=== PATIENT | female | born 1980 | race Caucasian/White ===

== ENCOUNTER 2017-06-27 12:09 | Emergency (ER) | payer MEDICAID ==
[~2017-06-27] VITALS: Ht 152.4 cm; Wt 46.3 kg
[~2017-06-27 12:09] MED LIST: BENTYL20 M1 PO; BENTYL20 MG PO; DARVOCET-N 1001 EACH PO; DOCUSATE SODIU250 M1 PO; DULCOLAX 1010 MG/SUP PR; FERROUS SULFAT325 M2 PO; GABAPENTIN 600600 MG PO; GABAPENTIN300 M1 PO; GICOCKTAIL PO; GLYCOLAX17 GM/DOSE PO; HYDROCODONE-APA1 TA2 PO; IBU-8800 MG PO; IRON TABLETS325 MG PO; LORTAB 5/500 501 TAB PO; MACROBID100 M3 PO; MOTRIN 400MG.400 MG PO; NAPROSYN500 M1 PO; NAPROXEN SODIU500 MG PO; NICODERM C21 MG/24 H TD; NIFEDIPINE XL 330 MG PO; NOMEDS *; NORCO 325 MG-51 TAB PO; PERCOCET 5/3251 EACH PO; PHENERGAN 25MG.25 M1 PO; PHENERGAN 25MG.25 MG PR; PRENATAL PLUS1 TA1 PO; PRILOSEC20 MG PO; PROVENTIL0.09 MG/A1 IH; ROBAXIN-750750 MG PO; SULFAMETHOXAZOL1 TA6 PO; TESSALON PERLE100 MG PO; VIBRAMYCIN 100100 MG PO; XANAX 1MG TABLET1 MG PO; ZANTAC 300300 MG PO; ZOFRAN ODT4 MG PO
[2017-06-27 12:41] LABS: UTC STREP SCREEN NOT DETECTED (NOTDETECTED)
[2017-06-27] MEDS ORDERED: ZITHROMAX Z PA250 MG PO (12:50)
[2017-06-27] MEDS ORDERED: MEDROL 4MG. DOSE4 MG PO (12:50)
--- NOTE | 2017-06-27 12:50 | Urgent Treatment Center Report ---
History of Present Issue Date/Time Seen by Provider 06/27/17 1247 Visit Reason Pt arrived:Walked Presenting Problem:C/O COUGH, FEVER, AND WEAKNESS Location if Accident: Onset of symptoms date/time:/ or onset unknown for:MEDICAL HX UNKNOWN Have you (or family members/close friends) recently traveled outside the [place]? N If Yes, where/when: Have you had exposure to infectious disease within the past month? TB? Other? Specify: State that she has been having cough and congestion with fever for the last couple of days State that she has just wanted to lay around and now she is having some nasal stuffiness. State that she has continued to feel worse so she was afraid she may have had the flu so she came in to get checked ALLERGIES Coded Allergies: morphine (Severe, S-DIFF. BREATHING, HIVES 02/15/16) History Medical History General CAD? No Angina: No [place]: No Hypertension? No Hyperlipidemia? No CHF? No DVT? No PE? No COPD? Yes Asthma? Yes Anemia? No GERD? Yes Gastric ulcers? No GI Bleed? No Hernia? No Thyroid Problems? No Hypothyroidism? No CVA? No Seizures? No Diabetes? No Renal Insuffiency? No UTI? No Stones? Yes GB Disease: Yes Nephritic Syndrome? No Asplenia? No Hepatitis? No Sickle Cell Disease? No Arthritis? No Migraines? Yes Cataracts? No Glaucoma? No MRSA? No HIV? No TB? No Anxiety? Yes Depression? Yes Cancer? No More? Yes Additional hx: "SPOT" ON HER RIGHT KIDNEY Immunization HX DT/Tetanus 5-10 Years Ago Flu NEVER HAD Pneumonia Refuses Surgical Hx Previous Surgery?Y Cholecystectomy HYSTERECTOMY C/S BILATERAL S.O. CYST REMOVED LEG MOUTH EXTRACTION CHOLEYCYSTECTOMY Family History Family HX Diabetes No CAD Yes Hypertension No Hyperlipidemia Yes Cancer Yes TB No Social History Smoking Hx Smoker: Current Every Day Smoker Tobacco: Yes Type Cigarettes Packs/day 1 1/2 - 2 Packs Alcohol Alcohol: No Review of Systems All Other Systems Reviewed and Negative Constitutional chills, fever ENT nose congestion, throat pain. Respiratory cough, denies shortness of breath, denies wheezing Physical Exam Vital Signs Vital Signs Date Time Temp Pulse Resp B/P Pulse O2 O2 Flow FiO2 Ox Delivery Rate 06/27 1252 98.5 75 20 116/76 98 06/27 1226 98.5 75 20 116/76 98 General Appearance normal appearance, WD/WN, no apparent distress Ear, Nose, Throat sinus pain/drainage, Throat red irritated drainage noted with tenderness in maxillary sinuses Respiratory Status Yes: trachea midline, chest symmetrical, non tender chest. No: respiratory distress. Lung Sounds bilateral: normal breath sounds, lungs clear. Cardiovascular normal exam, regular rate/rhythm, no peripheral edema Neurologic alert, normal exam, oriented x 3 Medical Decision Making LABS/Meds/Orders Pt receiving controlled substance in ED? No Results/Orders Laboratory Tests 06/27/17 1220: Influenza Type A Ag NOT DETECTED, Influenza Type B Ag NOT DETECTED, Group A Strep Screen NOT DETECTED Orders Procedure Date/time Status UTC STREP SCREEN 06/27 121 Complete UTC FLU A,B 06/27 121 Complete Departure Departure Time of Disposition 1258 Disposition DC Home or Self Care(routine) Clinical Impression Primary Impression: Upper respiratory infection Qualifiers: URI type: unspecified URI Qualified Code: J06.9 - Acute upper respiratory infection, unspecified Condition STABLE Patient Instructions Cough, DI for Nausea -- Adult, Sore Throat Additional Instructions * Monitor Temp. Tylenol and/or Ibuprofen as needed. ER if fever is no less than 101 despite alternating Tylenol and Ibuprofen * Encourage fluids, water, Gatorade, powerade, pedialyte if /toddler/or child * Warm salt water gargles for throat irritation *Warm fluids *Sore throat lozenges *Sleep elevated *humidifier or vaporizer Follow up IMMEDIATELY for new or worsening of symptoms OR no noticeable improvement over the next 48-72 hours. 911 immediately for any life threatening symptoms such as chest pain or difficulty breathing Discharge Counseling Counseled pt/family regarding diagnosis, medications/RX, home care, follow up needs Prescriptions Current Visit Scripts Azithromycin (Zithromycin (Z-RANJAN) 250MG Tab) 250 MG PO DAILY #6 TAB TAKE TWO (2) TABLETS ON DAY 1, THEN ONE (1) TABLET DAY #2 THRU #5 Methylprednisolone (Medrol Dose Ranjan) 4 MG PO UD #1 RANJAN TAKE DIRECTED ON PACKAGING at 1258
[2017-06-27 12:52] VITALS: BP 116/76
--- OUTSIDE RECORDS SUMMARY | 2017-06-30 09:12 | External Medical Summary Rpt | CCD ---
Author Author , JEN LI Address Unknown Phone [email or web address] Purpose Continuity of Care Document - 05-02-2017 through 2016 Problems Code Diagnosis DOS Provider Status R51 HEADACHE
--- OUTSIDE RECORDS SUMMARY | 2017-06-30 09:12 | External Medical Summary Rpt | CCD ---
Author Author [employer] Organization [employer] Address Unknown Phone Unavailable Purpose Continuity of Care Document - through 2016
--- OUTSIDE RECORDS SUMMARY | 2017-06-30 09:12 | External Medical Summary Rpt | CCD ---
Author Author , JEN LI Address Unknown Phone Immunization Name Date Rout CVX Reac Dose Comm Prov Is Faci e tion ent ider Refu lity Give sed n Tdap 09-2 115 999 Hist H109 No H109 , 3-20 oric Adso 08 al rbed Info rmat ion - Sour ce Unsp ecif ied
--- OUTSIDE RECORDS SUMMARY | 2017-06-30 09:12 | External Medical Summary Rpt ---
Author Author JEN Baum, [employer] Organization [employer] Address Unknown Phone Unavailable Results Choriogonadotropin [Units/volume] in Serum or Plasma Observa Value Referen Units Interpr Notes Date tion ce etation Range Choriogon NEG No No No May 02 adotropin informati informati informati 2016 on in on in on in 10:13 AM [Units/vo source source source lume] in data data data Serum or Plasma
--- OUTSIDE RECORDS SUMMARY | 2017-06-30 09:12 | External Medical Summary Rpt | CCD ---
Author Author , JEN LI Address Unknown Phone [email or web address] Purpose Continuity of Care Document - 05-02-2017 through 2016 Problems Code Diagnosis DOS Provider Status R51 HEADACHE
== END 2017-06-27 12:56 | disposition home or self-care (01) ==
LOC: UTC 12:09
PROVIDERS: Nurse Practitioner
DX: J06.9 Acute upper respiratory infection, unspecified (principal); F17.210 Nicotine dependence, cigarettes, uncomplicated; F41.8 Other specified anxiety disorders; J44.9 Chronic obstructive pulmonary disease, unspecified; J45.909 Unspecified asthma, uncomplicated; Z88.6 Allergy status to analgesic agent